=== PATIENT | female | born 1965 | race Caucasian/White ===

== ENCOUNTER 2019-12-23 11:54 | Outpatient (RCR) | payer OTHER ==
--- NOTE | 2019-12-23 18:14 | NUR ---
Pt: Gissel Ferrera MD: Dr. Alpesh Puri Date: 12/23/2019DOB: 1965 Voice Evaluation and Treatment History: Mrs. Ferrera is a 54 year old female seen at the [facility] for a Voice Evaluation. PMH includes illness treated with steroids in May of 2019 and gradual hoarseness/dysphonia continued to this day. Mrs. Ferrera c/o seasonal allergies and does not take regular medication for them, she also has had heightened sense of smell with perfumes and chemical smells being quite offensive. Air purifiers in her office irritate her. Mrs. Ferrera complained that her voice is hoarse with her best time of day in the [employer]. She uses conversational speech at work daily and does not raise her voice or sing. She also reported glottal henry after work globus sensation throughout the day. She had her best day yesterday and did nothing different. She is currently on antibiotics and is thought to have infected lymph nodes and c/o sore throat. She has another 10 days left on her Rx. Mrs. Ferrera takes Protonix 80 mg for GERD. She c/o jaw popping that either result in severe headache or closing off of right Eustachian tube. Mrs. Ferrera has a normal swallow function. Current medications include Protonix 80 mg, Trazadone PRN for sleep, over the counter allergy medication PRN. Patient/family Goal: to eliminate hoarseness and throat pain. Acoustic measures: Sound Pressure Level (SPL, acoustic correlate of vocal loudness) measured with a sound level meter at a distance of 40 cm from mouth during 3 voice and speech tasks revealed the following SPL numbers: Average Range Adult Female Norm SUSTAINED VOWELS: 64 dB 69-76 dB 80-85 dB READIN dB 61-65 dB 80-85 dB CONVERSATION: 62 dB 61-64 dB 80-85 dB SUSTAINED VOWEL 25.5 seconds 23-29 seconds 21.34 seconds These results represented conversational vocal SPL levels and reduced vocal intonation that likely reduces Mrs. Ferrera speech intelligibility and communicative effectiveness. Perceptual measures: Mrs. Ferrera functional speech intelligibility is reduced 0% of the time. Completion of the Voice Handicap Index (VHI) on initial evaluation revealed a perception of a mild voice disorder with Functional subscale at 4 Physical subscale at 24 Emotional subscale at 2 with a total of 30. Oral Motor Examination: An oral motor speech exam revealed the structures and function of Mrs. Ferrera speech mechanism to be within normal limits. Average pitch range for sustained vowel is 134-895 Hz for an adult female. Evaluation of Mrs. Ferrera pitch range was 118-625 Hz. 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 Voice deficits included reduced loudness, and hoarseness and laryngeal tension. Prognosis: Good for goals secondary to high level of patient motivation Recommendations: 1. It is recommended that Mrs. Ferrera attend voice therapy 1 x week x 4 week Long-Term Goal: Patient will use a loud voice to communicate effectively in daily interactions with family and friends with independence. Short-Term Goals: 1. Patient will increase vocal loudness during sustained phonation to reach a target sound pressure level of 75 dB with minimal cues measured at 40 cm from SPL instrument. Pt at average of 64 dB today, 2. Patient with participate in digital laryngeal manipulation to ease laryngeal tension. Pt participated with no pain and palpable improvement in laryngeal movement after 5 minutes of manipulation. 3. Patient will follow vocal hygiene protocol with independence. Pt completing program with independence. 4. Patient will follow GERD precautions with independence. 5. Patient will follow HEP for neck stretching daily with independence. Virginia Winter M.S. [employer] Date of Evaluation: 12/23/19 Voice Evaluation X 60 minutes NOMS Voice Level 5 MD Signature date
== END 2019-12-25 ==
LOC: ST 11:54
PROVIDERS: ATTEND Otolaryngology Otolaryngology/Facial Plastic Surgery
DX: R49.0 Dysphonia (principal); J38.7 Other diseases of larynx